=== PATIENT | male | born 1955 | race Caucasian/White ===

== ENCOUNTER 2020-09-08 09:07 | Emergency (ER) | payer MEDICARE ==
[~2020-09-08] VITALS: Ht 177.8 cm; Wt 90.7 kg
[2020-09-08] MEDS ORDERED: CLIN300 PO (09:52)
[2020-09-08] MEDS ORDERED: Norco 5-325 Ta1 EACH PO (09:52)
[2020-09-08] MEDS ORDERED: IBUP200 PO (10:00)
[2020-09-08] MEDS ORDERED: ASPI325 PO (10:01)
== END 2020-09-08 10:30 | disposition home or self-care (01) ==
LOC: ER 09:07
DX: L03.031 Cellulitis of right toe (principal); S91.201A Unspecified open wound of right great toe with damage to nail, initial encounter; E11.9 Type 2 diabetes mellitus without complications; F17.200 Nicotine dependence, unspecified, uncomplicated; W23.0XXA Caught, crushed, jammed, or pinched between moving objects, initial encounter
CPT/HCPCS: 99283-25; A9270

== ENCOUNTER 2020-09-12 00:22 | Emergency (ER) | payer MEDICARE ==
[~2020-09-12] VITALS: Ht 177.8 cm; Wt 90.7 kg
[~2020-09-12 00:22] MED LIST: ASPI325 PO; CLIN300 PO; IBUP200 PO; Norco 5-325 Ta1 EACH PO
[2020-09-12 02:28] LABS: BASOPHILS ABSOLUTE AUTO 0.07 K/mm3 (0.00-0.23); BASOPHILS PERCENT AUTO 1 % (0-2); EOSINOPHILS ABSOLUTE AUTO 0.19 K/mm3 (0.00-0.68); EOSINOPHILS PERCENT AUTO 2 % (0-6); Hematocrit 45.9 % (37.0-53.0); Hemoglobin 14.7 g/dL (13.5-17.5); IMMATURE GRAN ABSOLUTE AUTO 0.04 K/mm3 (0.00-0.10); IMMATURE GRAN PERCENT AUTO 0 % (0-1); LYMPHOCYTES ABSOLUTE AUTO 3.19 K/mm3 (0.84-5.20); LYMPHOCYTES PERCENT AUTO 26 % (21-46); MONOCYTES ABSOLUTE AUTO 0.81 K/mm3 (0.16-1.47); MONOCYTES PERCENT AUTO 7 % (4-13); Mean Corpuscular HGB 27.8 pg (26.0-34.0); Mean Corpuscular Volume 87 fL (80-100); Mean Platelet Volume 9.4 fL (9.1-12.4); NEUTROPHILS ABSOLUTE AUTO 7.83 K/mm3 (1.96-9.15); NEUTROPHILS PERCENT AUTO 65 % (41-73); Platelet Count 493 K/mm3 (150-400); RDW Coefficient Variation 14.5 % (11.7-14.2); RDW Standard Deviation 46.5 fL (35.1-46.3); Red Blood Cell Count 5.28 M/mm3 (4.30-5.90); White Blood Cell Count 12.13 K/mm3 (4.00-11.30)
[2020-09-12 02:49] LABS: Alanine Aminotransfer (ALT/SGP 16 U/L (12-78); Albumin, Blood 3.3 g/dL (3.4-5.0); Albumin/Globulin Ratio 0.8 (0.8-1.8); Alk Phos 138 U/L (50-136); Anion Gap 7 mmol/L (6-16); Aspartate Aminotrans (AST/SGOT 11 U/L (12-37); Bilirubin, Total 0.3 mg/dL (0.1-1.0); Blood Urea Nitrogen 16 mg/dL (8-24); Bun/Creatinine Ratio 21.3 (12.0-20.0); CO2, Blood 27 mmol/L (21-32); Calcium, Blood 8.7 mg/dL (8.5-10.1); Chloride, Blood 103 mmol/L (98-108); Creatinine, Blood 0.75 mg/dL (0.60-1.20); Globulin, Blood 4.4 g/dL (2.2-4.0); Glomerular Filtration Rate >60 (60-); Glucose, Blood 138 mg/dL (70-99); Potassium, Blood 3.7 mmol/L (3.5-5.5); Sodium, Blood 137 mmol/L (136-145); Total Protein, Blood 7.7 g/dL (6.4-8.2)
[2020-09-12] MEDS ORDERED: Neurontin 100100 MG PO (03:55)
[2020-09-12] MEDS ORDERED: Colace250 MG PO (03:57)
[2020-09-12] MEDS ORDERED: HYDR1TAB94 PO (03:57)
== END 2020-09-12 04:19 | disposition home or self-care (01) ==
LOC: ER 00:22
PROVIDERS: Emergency Medicine
DX: M79.671 Pain in right foot (principal); E11.9 Type 2 diabetes mellitus without complications; F17.210 Nicotine dependence, cigarettes, uncomplicated; Z79.82 Long term (current) use of aspirin; Z86.73 Personal history of transient ischemic attack (TIA), and cerebral infarction without residual deficits
CPT/HCPCS: 36415; 73620; 80053; 85025; 85651; 86141; 99283-25; A9270

== ENCOUNTER 2020-10-09 17:18 | Inpatient (IN) | payer MEDICARE ==
[~2020-10-09] VITALS: Ht 180.3 cm; Wt 62.3 kg
[~2020-10-09 17:18] MED LIST changes: +Colace250 MG PO; +HYDR1TAB94 PO; +Neurontin 100100 MG PO
[2020-10-09 20:31] LABS: BASOPHILS ABSOLUTE AUTO 0.09 K/mm3 (0.00-0.23); BASOPHILS PERCENT AUTO 1 % (0-2); EOSINOPHILS ABSOLUTE AUTO 0.27 K/mm3 (0.00-0.68); EOSINOPHILS PERCENT AUTO 2 % (0-6); Hematocrit 45.7 % (37.0-53.0); Hemoglobin 14.6 g/dL (13.5-17.5); IMMATURE GRAN ABSOLUTE AUTO 0.04 K/mm3 (0.00-0.10); IMMATURE GRAN PERCENT AUTO 0 % (0-1); LYMPHOCYTES ABSOLUTE AUTO 4.43 K/mm3 (0.84-5.20); LYMPHOCYTES PERCENT AUTO 37 % (21-46); MONOCYTES ABSOLUTE AUTO 0.87 K/mm3 (0.16-1.47); MONOCYTES PERCENT AUTO 7 % (4-13); Mean Corpuscular HGB 28.1 pg (26.0-34.0); Mean Corpuscular HGB Conc 31.9 g/dL (31.5-36.5); Mean Corpuscular Volume 88 fL (80-100); Mean Platelet Volume 9.4 fL (9.1-12.4); NEUTROPHILS ABSOLUTE AUTO 6.24 K/mm3 (1.96-9.15); NEUTROPHILS PERCENT AUTO 52 % (41-73); Platelet Count 485 K/mm3 (150-400); RDW Coefficient Variation 15.2 % (11.7-14.2); RDW Standard Deviation 49.7 fL (35.1-46.3); White Blood Cell Count 11.94 K/mm3 (4.00-11.30)
[2020-10-09 20:46] LABS: International Normalized Ratio 0.99; Prothrombin Time Results 10.6 Sec (9.7-11.5)
[2020-10-09 20:50] LABS: Alanine Aminotransfer (ALT/SGP 20 U/L (12-78); Albumin, Blood 3.7 g/dL (3.4-5.0); Albumin/Globulin Ratio 0.9 (0.8-1.8); Alk Phos 94 U/L (50-136); Anion Gap 4 mmol/L (6-16); Aspartate Aminotrans (AST/SGOT 16 U/L (12-37); Bilirubin, Total 0.3 mg/dL (0.1-1.0); Blood Urea Nitrogen 20 mg/dL (8-24); Bun/Creatinine Ratio 23.3 (12.0-20.0); CO2, Blood 28 mmol/L (21-32); Calcium, Blood 8.9 mg/dL (8.5-10.1); Chloride, Blood 109 mmol/L (98-108); Creatinine, Blood 0.86 mg/dL (0.60-1.20); Glomerular Filtration Rate >60 (60-); Glucose, Blood 108 mg/dL (70-99); Potassium, Blood 3.9 mmol/L (3.5-5.5); Sodium, Blood 141 mmol/L (136-145); Total Protein, Blood 7.7 g/dL (6.4-8.2)
--- NOTE | 2020-10-10 01:04 | NUR ---
ADMIT: PT ADMITTED AT 2325 TO ICU 10 WITH RN AT BEDSIDE AND HEART MONIOTR ATTACHED. PT DENIES ANY PAIN AT THIS TIME. PT A&O X4, VERY BLACKFEET, HEARS BETTER ON L SIDE. 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 CLAYTON 3MM BILAT. LS VERY DIMINISHED T/O WITH BIOX 96% ON RA. STATES 1PK/DAY SMOKER WHEN HE CAN GET THEM. HEART SOUNDS S1 AND S2 AUSCULTATED WITH MONITOR SHOWING NSR WITH HR 70. SKIN DIRTY, DRY AND WARM. L AKA. R LEG SWOLLEN AND RED FROM KNEE DOWN WITH 2+ EDEMA. DOPPLER PT ON R LEG AND UNABLE TO DOPPLER DP. PT'S FOOT IS VERY TENDER TO TOUCH ALONG WITH HIS CALF. 20G IV LAC WITH HEPARIN AT 15UNITS/KG/HR AND NS AT 75CC/HR. ABD R/S WITH BTX4 VOIDS PER URINAL.
--- NOTE | 2020-10-10 02:00 | NUR ---
ASSUMING PT CARE: REPORT TAKEN FROM ELVI SHANNON. PT SLEEPING SOUNDLY IN BED. CALL LIGHT W/IN REACH. SHAY.
[2020-10-10 05:13] LABS: BASOPHILS ABSOLUTE AUTO 0.06 K/mm3 (0.00-0.23); BASOPHILS PERCENT AUTO 1 % (0-2); EOSINOPHILS ABSOLUTE AUTO 0.26 K/mm3 (0.00-0.68); EOSINOPHILS PERCENT AUTO 2 % (0-6); Hemoglobin 13.8 g/dL (13.5-17.5); IMMATURE GRAN ABSOLUTE AUTO 0.04 K/mm3 (0.00-0.10); IMMATURE GRAN PERCENT AUTO 0 % (0-1); LYMPHOCYTES ABSOLUTE AUTO 4.15 K/mm3 (0.84-5.20); LYMPHOCYTES PERCENT AUTO 36 % (21-46); MONOCYTES PERCENT AUTO 7 % (4-13); Mean Corpuscular HGB 28.6 pg (26.0-34.0); Mean Corpuscular HGB Conc 32.9 g/dL (31.5-36.5); Mean Corpuscular Volume 87 fL (80-100); Mean Platelet Volume 9.5 fL (9.1-12.4); NEUTROPHILS ABSOLUTE AUTO 6.12 K/mm3 (1.96-9.15); NEUTROPHILS PERCENT AUTO 54 % (41-73); Platelet Count 430 K/mm3 (150-400); RDW Coefficient Variation 15.2 % (11.7-14.2); RDW Standard Deviation 48.9 fL (35.1-46.3); Red Blood Cell Count 4.82 M/mm3 (4.30-5.90); White Blood Cell Count 11.43 K/mm3 (4.00-11.30)
[2020-10-10 05:29] LABS: Alanine Aminotransfer (ALT/SGP 18 U/L (12-78); Albumin, Blood 3.2 g/dL (3.4-5.0); Albumin/Globulin Ratio 0.9 (0.8-1.8); Alk Phos 81 U/L (50-136); Anion Gap 4 mmol/L (6-16); Aspartate Aminotrans (AST/SGOT 17 U/L (12-37); Bilirubin, Total 0.4 mg/dL (0.1-1.0); Blood Urea Nitrogen 16 mg/dL (8-24); Bun/Creatinine Ratio 22.3 (12.0-20.0); CO2, Blood 27 mmol/L (21-32); Calcium, Blood 8.6 mg/dL (8.5-10.1); Chloride, Blood 109 mmol/L (98-108); Creatinine, Blood 0.72 mg/dL (0.60-1.20); Globulin, Blood 3.6 g/dL (2.2-4.0); Glomerular Filtration Rate >60 (60-); Glucose, Blood 79 mg/dL (70-99); Potassium, Blood 3.9 mmol/L (3.5-5.5); Sodium, Blood 140 mmol/L (136-145); Total Protein, Blood 6.8 g/dL (6.4-8.2)
--- NOTE | 2020-10-10 06:29 | NUR ---
SHIFT SUMMARY: PT HAD MUCH DIFFICULTY SLEEPING LAST NIGHT D/T "CRAMPING" IN HIS R CALF. HE WAS GIVEN IV FENTANYL & DILAUDID, BOTH RESOLVED HIS PAIN FOR ONLY A SHORT TIME. PT IS UNABLE TO STRAIGHTEN OUT HIS LEG W/OUT PAIN. R PEDAL PULSE UNABLE TO BE FOUND, +TIBIAL W/ DOPPLER. HEPARIN GTT @ 16u/kg/hr. VSS.
--- NOTE | 2020-10-10 10:19 | NUR ---
AM NOTE... ASSUMED CARE OF PT AT 0715 PT IS A&Ox4 AND VERY [place]. PT WAS ADMITTED FOR RIGHT GREAT TOE GANEGRENE AND ARTERIAL OCCLUSION ON THE RIGHT LEG ALONG WITH A DVT IN THE FEMORAL ARTERY PER NOC SHIFT RN REPORT. PT'S VS STABLE AT THIS TIME. HEPARIN GTT RUNNING PER ORDERS. PT HAS A LEFT AKA. DOPPLER WAS USED TO FIND THE RIGHT TIBIAL PULSE BUT PEDAL PULSE WAS NOT FOUND BY DOPPLER OR PALP. CONSLULT FOR DR. ZHANG CALLED IN, PT WILL HAVE PROCEDURE DONE TOMORROW PER NOC SHIFT RN REPORT. CALL LIGHT IN REACH WILL CONTINUE TO MONITOR.
[2020-10-10 11:02] LABS: CHOL/HDL RATIO 6.3; Cholesterol 203 mg/dL (50-200); HDL Cholesterol 32 mg/dL (>39); LDL/HDL RATIO 4.2; Low Density Lipoprotein Chol 134 mg/dL (0-110); Triglycerides 186 mg/dL (30-160); Very Low Density Lipoprot Chol 37 mg/dL (6-32)
--- NOTE | 2020-10-10 11:33 | NUR ---
PT UPDATE.... PODIATRY CONSULT WAS CANCELED D/T NO PODIATRY COVERAGE THIS WEEKEND. PT IS TO SEE DR. ZHANG PRIOR TO ANY SURGERY. WILL CONTINUE TO MONITOR.
--- NOTE | 2020-10-10 18:06 | NUR ---
SHIFT SUMMARY... PT'S VS HAVE BEEN STABLE T/O SHIFT. PT HAS BEEN MEDICATED FOR PAIN PER EMAR. PT'S HEPARIN GTT RUNNING PER ORDERS. THIS AFTERNOON IS WAS NOTED THAT FAINT PEDAL PULSE WAS HEARD USING THE DOPPLER TO THE TOP OF THE RIGHT FOOT. THE RIGHT FOOT IS COOL AND PINK, THE BOTTOM OF THE RIGHT GREAT TOE CONTINUES TO BE BLACK. THE PT'S RIGHT FOOT WAS CLEANED D/T THE BOTTOM OF IT BEING DIRTY WITH BLACK CRUSTIES AND DOG HAIR. THE PT'S SON CAME TO VISIT AND WAS UPDATED ON THE PT'S CONDITION AND PLAN OF CARE. PT IS TO SEE DR. ZHANG TOMORROW AND PODIATRY AFTER THE VASCULAR INTERVENTIONS ARE DONE. CALL LIGHT IN REACH WILL CONTINUE TO MONITOR UNTIL REPORT IS GIVEN TO ONCOMING RN.
--- NOTE | 2020-10-10 19:30 | NUR ---
ASSUMING PT CARE: PT LAYING SUPINE IN BED, SLEEPING SOUNDLY, RR EVEN & UNLABORED. PT AWAKES WHEN STAFF ENTER ROOM & IS APPROPRIATELY INTERACTIVE. HOWEVER [place]. R TIBIAL PULSE ABLE TO BE FOUND W/ DOPPLER & MARKED W/ SKIN PEN. DP PULSE ABSENT. PT STS HIS PAIN IN CONTROLLED @ THIS TIME. HEPARIN GTT 18u/kg/hr. WILL CONTINUE TO MONITOR & REPORT APPROPRIATE.
--- NOTE | 2020-10-11 05:45 | NUR ---
SHIFT SUMMARY: PT SLEPT VERY WELL LAST NIGHT, AWAKING ONLY FOR NURSING CARE & 1 TIME FOR PAIN MANAGEMENT. VS STABLE THROUGHOUT THE NIGHT. L TIBIAL PULSE +DOPPLER HOWEVER MORE FAINT THROUGHOUT THE SHIFT. PLAN FOR [facility] [place] EVAL & DIE DRAWING CHECKER THIS AM. HEPARIN GTT @ 18u/kg/hr.
[2020-10-11 05:55] LABS: BASOPHILS ABSOLUTE AUTO 0.04 K/mm3 (0.00-0.23); BASOPHILS PERCENT AUTO 0 % (0-2); EOSINOPHILS PERCENT AUTO 2 % (0-6); Hemoglobin 12.9 g/dL (13.5-17.5); IMMATURE GRAN ABSOLUTE AUTO 0.03 K/mm3 (0.00-0.10); IMMATURE GRAN PERCENT AUTO 0 % (0-1); LYMPHOCYTES ABSOLUTE AUTO 3.44 K/mm3 (0.84-5.20); LYMPHOCYTES PERCENT AUTO 32 % (21-46); MONOCYTES ABSOLUTE AUTO 0.92 K/mm3 (0.16-1.47); MONOCYTES PERCENT AUTO 9 % (4-13); Mean Corpuscular HGB 28.1 pg (26.0-34.0); Mean Corpuscular HGB Conc 32.3 g/dL (31.5-36.5); Mean Corpuscular Volume 87 fL (80-100); Mean Platelet Volume 9.4 fL (9.1-12.4); NEUTROPHILS ABSOLUTE AUTO 6.12 K/mm3 (1.96-9.15); NEUTROPHILS PERCENT AUTO 57 % (41-73); Platelet Count 390 K/mm3 (150-400); RDW Coefficient Variation 15.1 % (11.7-14.2); RDW Standard Deviation 48.4 fL (35.1-46.3); Red Blood Cell Count 4.59 M/mm3 (4.30-5.90); White Blood Cell Count 10.75 K/mm3 (4.00-11.30)
[2020-10-11 06:11] LABS: Anion Gap 5 mmol/L (6-16); Blood Urea Nitrogen 11 mg/dL (8-24); Bun/Creatinine Ratio 17.7 (12.0-20.0); CO2, Blood 26 mmol/L (21-32); Calcium, Blood 8.8 mg/dL (8.5-10.1); Chloride, Blood 108 mmol/L (98-108); Creatinine, Blood 0.62 mg/dL (0.60-1.20); Glomerular Filtration Rate >60 (60-); Glucose, Blood 93 mg/dL (70-99); Phosphorus, Blood 3.1 mg/dL (2.5-4.9); Sodium, Blood 139 mmol/L (136-145)
--- NOTE | 2020-10-11 10:29 | NUR ---
ASSUMED CARE OF PT, REPORT RCVD FROM ELVI PARIS. PT ALERT AND ORIENTED, COOPERATIVE WITH CARE. PT MOVES ALL EXTREMETIES WEAKLY. 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 PT HAS WEAK INVENTORY CONTROL COORDINATOR R WEAKER THAN L. PT TREATED PER EMAR FOR PAIN IN RLE. RLE PULSES WITH DOPPLER, RLE PINKISH/COOL TO TOUCH. RIGHT LARGE TOE NECROTIC (SEE PICTS IN CHART). PLAN FOR [facility] TO TAKE PT TO [facility] TODAY, RAPID COVID SWAB SENT. HEPARIN INFUSING @ 18 U/KG/HR (62 KG DOSE WT) PT'S SON ASHLEY CALLED THIS AM AND WAS UPDATED WITH PLAN. SEE FULL SHIFT ASSESSMENT.
[2020-10-11 10:55] LABS: Influenza A, PCR NEGATIVE (NEGATIVE); Influenza B, PCR NEGATIVE (NEGATIVE); Resp Syncytial Virus, PCR NEGATIVE (NEGATIVE); SARS-Cov-2 (COVID-19) PCR, MMC NEGATIVE (NEGATIVE)
--- NOTE | 2020-10-11 18:32 | NUR ---
SHIFT SUMMARY NO ACUTE CHANGES T/O SHIFT. PT REMAINS ALERT AND ORIENTED, COOPERATIVE WITH CARE. PT REPOSITIONS SELF, USES CALL LIGHT APPROPRIATELY. PT HAS DENIED PAIN ALL SHIFT. HEPARIN GTT REMAINS AT 18 U/KG/HR. VSS T/O SHIFT. PT TO BE NPO AT MIDNIGHT FOR ANTICIPATED MORNING ANGIOGRAM. PT AND FAMILY UPDATED WITH PLAN OF CARE. WILL REPORT TO ONCOMING NURSE.
--- NOTE | 2020-10-12 06:33 | NUR ---
SHIFT SUMMARY PT UNABLE TO SLEEP T/O SHIFT. PT ALERT AND ORINTED X 4. HR STABE. BP STABLE. OXYGEN SATURATION MAINTAINED ABOVE 92% ON RA. PT REPORTS NO CP OR PRESSURE. MEDICATED PER EMAR FOR PAIN. REPOSITIONED Q 2 HRS AND NEEDED FOR COMFORT. WILL CONTINUE TO MONITOR UNTIL REPORT GIVEN TO DAYSHIFT RN.
--- NOTE | 2020-10-12 17:28 | NUR ---
DANIELA HAS BEEN PUSHED OUT TO TOMORROW FOR HIS PROCEDURE, HE IS NOW ABLE TO EAT DINNER AND HE IS THRILLED. HE WAS GIVEN A BEDBATH, REPORT TO ELVI WEBSTER IN PCU ROOM 5 AWAITS HIS ARRIVAL. NO CHANGES, HEPARIN CONTINUES INFUSING. REPOSITIONED NECESSARY THROUGH OUT THE SHIFT.
--- NOTE | 2020-10-12 18:08 | NUR ---
TRANSFER PT ARRIVED TO UNIT FROM ICU. PT ALERT AND ORIENTED. PT DENIES ANY PAIN. ORIENTED TO UNIT. WILL CONTINUE TO MONITOR AND REPORT TO ONCOMING RN. CALL LIGHT IN REACH.
--- NOTE | 2020-10-13 05:16 | NUR ---
SHIFT SUMMARY PT AXO. [place]. HAS BEEN IN SR WITH STABLE VS. PT REMAINS ON RA, SPO2 >94%. HEPARIN CONTINUES TO INFUSE ORDERED, TITRATED ONCE THIS SHIFT. R PEDAL PULSE REMAINS TO DOPPLER, NOT PALPABLE. R GREAT TOE REMAINS GANGENOUS, PT WITH OCCASIONAL PAIN TO THIS AREA, CONTROLLED BY PAIN MEDS PER EMAR. PT NPO THIS AM FOR POSSIBLE REVASC TO R LEG. OTHERWISE, PT RESTING IN BED. USING URINAL. BEING REPOSITIONED BY STAFF. WILL CONTINUE TO MONITOR UNTIL SHIFT CHANGE.
[2020-10-13 07:04] LABS: Mean Platelet Volume 10.6 fL (9.1-12.4); Platelet Count 405 K/mm3 (150-400)
--- NOTE | 2020-10-13 09:48 | NUR ---
UPDATE: PT ALERT AND ORIENTED X4. ON ROOM AIR SATING ABOVE 92%. TELE SHOWING SINUS RHYTHM WITH HR 70'S. DENIES ANY PAIN THIS AM. UP SITTING AT SIDE OF BED FOR ASSESSMENT. LUNGS SOUND CLEAR AND DIMINISHED IN LOWER LOBES. DENIES ANY PAIN. AFTER EATING BREAKFAST PT HAD ONE EPISODE OF EMESIS WITH INNOVATIONS PARAPROFESSIONAL. INNOVATIONS PARAPROFESSIONAL REPORTS ABOUT 200ML IN EMESIS BAG. PT DENIES NAUSEA OR ANY PAIN IN ABDOMEN. NO BLOOD VISIBLE IN EMESIS. WILL CONTINUE TO MONITOR. PT STATES "I FEEL FINE, MAYBE IT WAS JUST A BAD BREAKFAST". CALL LIGHT IN REACH.
--- NOTE | 2020-10-13 10:48 | NUR ---
PEDAL PUSLE: RIGHT PEDAL PULSE OBTAINED WITH DOPPLER THIS AM AND MARKED WITH SKIN MARKER.
--- NOTE | 2020-10-13 12:16 | NUR ---
UPDATE: SPOKE WITH DR. ZHANG AT 1030 THIS MORNING. PLAN FOR REVASCULARIZATION THIS AFTERNOON. NPO FOR LUNCH. PT UPDATED ON PLAN. PT ALSO SPOKE WITH SON TO GIVE HIM A UPDATE. WILL CONTINUE TO MONITOR. CALL LIGHT IN REACH.
--- NOTE | 2020-10-13 18:05 | NUR ---
HEPARIN RESTARTED PER VERBAL ORDER FROM DOG BEHAVIORIST DR. ZHANG. RESTARTED AT CURRENT RATE PER PHARMACY MANAGING. JOSE PATCH IN PLACE TO LEFT GROIN SITE CLEAN DRY AND INTACT. LAYING FLAT ON GURNEY, INSTRUCTIONS GIVEN TO CONTINUE TO LAY FLAT AND NOT BEND RIGHT LEG PER ORDERS.
--- NOTE | 2020-10-13 18:33 | NUR ---
SHIFT SUMMARY: PT ALERT AND OREITNED X4. ON ROOM AIR SATING ABOVE 92%. TELE SHOWING SINUS RHYTHM. PT HAD REVASCULARAZATION DONE THIS EVENING. RIGHT GROIN SITE WITH JOSE DRESSING. NONTENDER, C/D/I. NO SIGNS OF BLEEDING OF HEMATOMA. PT COMPLAINS OF SOME LEG PAIN. MEDICATED PER EMAR WITH GOOD RELIEF. PT LAYING FLAT AND POST PROCEDURE VITAL SIGNS TAKEN. RIGHT PEDAL PULSE BY DOPPLER. VITAL SIGNS STABLE. NO ACUTE CHANGES. WILL CONTINUE TO MONITOR AND REPORT OFF.
--- NOTE | 2020-10-14 05:07 | NUR ---
SHIFT SUMMARY NO ACUTE CHANGES THIS SHIFT. REMAINS AXO. IN SR. VSS. PT LAYING FLAT AT BEGINNING OF SHIFT AND HAS SLOWLY TRANSITIONED TO SITTING UP >30 DEGRESS. L GROIN SITE REMAINS CDI WITH JOSE, NO HEMATOMA NOTE WITH SLIGHT TENDERNESS TO SITE. PAIN PERSISTS TO R LEG BUT IV PAIN MEDICATIONS SUCCESFUL AT BRINGING DOWN TO TOLERABLE LEVEL PER PT. HEPARIN GTT CONTINUE TO INFUSE PER EMAR, TITRATED ONCE THIS SHIFT. OTHERWISE, PT ATE ALL OF DINNER, USES URINAL, AND USES CALL LIGHT APPROPRIATELY. WILL CONTINUE TO MONITOR UNTIL SHIFT CHANGE.
[2020-10-14] MEDS ORDERED: GABA100 PO (11:04)
[2020-10-14] MEDS ORDERED: ATOR40TA PO (11:05)
[2020-10-14] MEDS ORDERED: Nicoderm Cq1 EAC1 TOP (11:05)
[2020-10-14] MEDS ORDERED: METO25 PO (11:05)
[2020-10-14] MEDS ORDERED: ASPI81CH PO (11:06)
[2020-10-14] MEDS ORDERED: XARELTO20 MG PO (11:07)
[2020-10-14] MEDS ORDERED: XARELTO15 MG PO (11:07)
--- NOTE | 2020-10-14 14:13 | NUR ---
Discharge Summary A/Ox3, pleasant and cooperative. Dangling for all meals. Denies pain, numbness/tingling, nausea, diarrhea. Wheelchair baseline. On RA, breathing equal and unlabored. Reviewed discharge paperwork with son at bedside, questions answered to his satisfaction. Copy provided. IV removed. Meds faxed. Will be escorted via personal w/c. Son to set up follow-up appt with PCP. All others have been set up accordingly and son is aware of date/time. Personal belongings sent home.
== END 2020-10-14 14:07 | disposition home or self-care (01) | DRG 271 ==
LOC: ER 17:18 → ICUW 17:19 → ERHOLD 21:51 → ICUW 21:51 → ER 21:51 → ERHOLD 23:14 → ICUW 23:14 → PCU 10-12 17:45
PROVIDERS: Family Medicine; Pharmacist; Physician Assistant; Radiology Diagnostic Radiology; ADMIT Internal Medicine
PROC: 3E02340 Introduction of Influenza Vaccine into Muscle, Percutaneous Approach (ICD-10-PCS; principal; 2020-10-09)
PROC: 04CK3ZZ Extirpation of Matter from Right Femoral Artery, Percutaneous Approach (ICD-10-PCS; 2020-10-13)
PROC: 047K3Z1 Dilation of Right Femoral Artery using Drug-Coated Balloon, Percutaneous Approach (ICD-10-PCS; 2020-10-13)
PROC: 047M3ZZ Dilation of Right Popliteal Artery, Percutaneous Approach (ICD-10-PCS; 2020-10-13)
PROC: 047P3ZZ Dilation of Right Anterior Tibial Artery, Percutaneous Approach (ICD-10-PCS; 2020-10-13)
PROC: 047R3ZZ Dilation of Right Posterior Tibial Artery, Percutaneous Approach (ICD-10-PCS; 2020-10-13)
DX: I82.441 Acute embolism and thrombosis of right tibial vein (principal); I96 Gangrene, not elsewhere classified; Z20.822 Contact with and (suspected) exposure to COVID-19; G62.9 Polyneuropathy, unspecified; I10 Essential (primary) hypertension; E78.5 Hyperlipidemia, unspecified; F17.210 Nicotine dependence, cigarettes, uncomplicated; D72.829 Elevated white blood cell count, unspecified; I77.1 Stricture of artery; D47.3 Essential (hemorrhagic) thrombocythemia; Z23 Encounter for immunization; Z89.612 Acquired absence of left leg above knee; Z85.831 Personal history of malignant neoplasm of soft tissue; Z79.899 Other long term (current) drug therapy; Z79.82 Long term (current) use of aspirin
CPT/HCPCS: 0241U; 36415; 37225; 37228; 37232; 75625; 75716; 75774; 80053; 80061; 80069; 85025; 85049; 85347; 85610; 85730; 93926; 93971; 96365; 96366; 96375; 96376; 99152; 99153; 99285-25; A9270; C1714; C1725; C1760; C1769; C1884; C1887; C1894; C2623; G0008; G0378; J0360; J1170; J1644; J2250; J3010; J7030; J7050; Q2038; Q9967

== ENCOUNTER 2020-10-21 09:51 | Day surgery (SDC) | payer MEDICARE ==
[~2020-10-21] VITALS: Ht 177.8 cm; Wt 62.0 kg
[~2020-10-21 09:51] MED LIST changes: +ASPI81CH PO; +ATOR40TA PO; +GABA100 PO; +METO25 PO; +Nicoderm Cq1 EAC1 TOP; +XARELTO15 MG PO; +XARELTO20 MG PO
--- NOTE | 2020-10-21 10:22 | NUR ---
History, Chart, Medications and Allergies reviewed before start of procedure. Wheelchair bound. Up with total assist to bed. Pre-Op teaching done. Pt verbalizes understanding. Lungs clear T/O to Auscultation.
--- NOTE | 2020-10-21 12:16 | NUR ---
SON AT BEDSIDE FOR DISCHARGES INSTRUCTIONS AND ASSISTANCE WITH DRESSING/TRANSFERING TO W/C. Discharge instructions reviewed with patient AND SON Patient verbalizes understanding. Copy given to patient to take home. Discharged via PERSONAL wheelchair to private car for ride home WITH SON. RX FOR PAIN MEDS AND ANTIBIOTICS IN DISCHARGE FOLDER. ICE PACK GIVEN TO PT.
== END 2020-10-21 12:15 | disposition home or self-care (01) ==
LOC: ORSCMMR 09:51 → ORD 10:30 → ORSCMMR 10:30
PROVIDERS: Podiatrist Foot & Ankle Surgery
PROC: 0Y6P0Z1 Detachment at Right 1st Toe, High, Open Approach (ICD-10-PCS; principal; 2020-10-21 10:30)
DX: I96 Gangrene, not elsewhere classified (principal); I10 Essential (primary) hypertension; E78.00 Pure hypercholesterolemia, unspecified; Z86.73 Personal history of transient ischemic attack (TIA), and cerebral infarction without residual deficits; F17.210 Nicotine dependence, cigarettes, uncomplicated; Z79.01 Long term (current) use of anticoagulants; Z79.82 Long term (current) use of aspirin; Z79.899 Other long term (current) drug therapy
CPT/HCPCS: 82947; 88305; J0690; J2250; J2704; J3010; J7120

== ENCOUNTER 2022-11-02 23:19 | Emergency (ER) | payer MEDICARE ==
[~2022-11-02] VITALS: Ht 182.9 cm; Wt 90.7 kg
[2022-11-03 01:31] LABS: BASOPHILS ABSOLUTE AUTO 0.08 K/mm3 (0.00-0.23); BASOPHILS PERCENT AUTO 1 % (0-2); EOSINOPHILS ABSOLUTE AUTO 0.33 K/mm3 (0.00-0.68); EOSINOPHILS PERCENT AUTO 3 % (0-6); Hematocrit 43.9 % (37.0-53.0); Hemoglobin 14.2 g/dL (13.5-17.5); IMMATURE GRAN ABSOLUTE AUTO 0.04 K/mm3 (0.00-0.10); IMMATURE GRAN PERCENT AUTO 0 % (0-1); LYMPHOCYTES ABSOLUTE AUTO 3.36 K/mm3 (0.84-5.20); LYMPHOCYTES PERCENT AUTO 35 % (21-46); MONOCYTES ABSOLUTE AUTO 0.93 K/mm3 (0.16-1.47); MONOCYTES PERCENT AUTO 10 % (4-13); Mean Corpuscular HGB 27.4 pg (26.0-34.0); Mean Corpuscular HGB Conc 32.3 g/dL (31.5-36.5); Mean Corpuscular Volume 85 fL (80-100); Mean Platelet Volume 9.8 fL (9.1-12.4); NEUTROPHILS ABSOLUTE AUTO 4.85 K/mm3 (1.96-9.15); NEUTROPHILS PERCENT AUTO 51 % (41-73); Platelet Count 505 K/mm3 (150-400); RDW Coefficient Variation 14.8 % (11.7-14.2); Red Blood Cell Count 5.19 M/mm3 (4.30-5.90); White Blood Cell Count 9.59 K/mm3 (4.00-11.30)
[2022-11-03 01:38] LABS: Source, Urine Straight Cath
[2022-11-03 01:42] LABS: Albumin, Blood 3.1 g/dL (3.4-5.0); Albumin/Globulin Ratio 0.7 (0.8-1.8); Bilirubin, Total 0.3 mg/dL (0.1-1.0); Bun/Creatinine Ratio 11.4 (12.0-20.0); Creatinine, Blood 1.05 mg/dL (0.60-1.20); Globulin, Blood 4.5 g/dL (2.2-4.0); Magnesium, Blood 2.2 mg/dL (1.6-2.4); Potassium, Blood 4.1 mmol/L (3.5-5.5); Total Protein, Blood 7.6 g/dL (6.4-8.2)
[2022-11-03 01:47] LABS: Influenza A, PCR NEGATIVE (NEGATIVE); Influenza B, PCR NEGATIVE (NEGATIVE); Resp Syncytial Virus, PCR NEGATIVE (NEGATIVE); SARS-Cov-2 (COVID-19) PCR, MMC NEGATIVE (NEGATIVE)
[2022-11-03 01:56] LABS: Bilirubin, Urine Neg (Neg); Blood, Urine Neg (Neg); Glucose Qualitative, Urine 4+ (Neg); Ketones, Urine Neg (Neg); Leukocyte Esterase, Urine Neg (Neg); Nitrite, Urine Neg (Neg); Protein, Urine 1+ (Neg); Urobilinogen, Urine NORM (Normal); pH, Urine 6.5 (5.0-8.0)
[2022-11-03 02:02] LABS: Appearance, Urine Clear (Clear); Color, Urine Yellow (P-Yellow)
== END 2022-11-03 04:10 | disposition home or self-care (01) ==
LOC: ER 23:19
PROVIDERS: Student in an Organized Health Care Education/Training Program
DX: E11.65 Type 2 diabetes mellitus with hyperglycemia (principal); Z79.899 Other long term (current) drug therapy; Z79.82 Long term (current) use of aspirin; I10 Essential (primary) hypertension; E78.5 Hyperlipidemia, unspecified; F17.210 Nicotine dependence, cigarettes, uncomplicated; Z20.822 Contact with and (suspected) exposure to COVID-19
CPT/HCPCS: 0241U; 36415; 51701; 70450; 80053; 82947; 83735; 85025; 93005; 93010; 96365; 99285; J3475